=== PATIENT | female | born 1960 | race Caucasian/White ===

== ENCOUNTER 2024-12-19 20:27 | Emergency (ER) | payer OTHER ==
[~2024-12-19] VITALS: Ht 160 cm; Wt 113.0 kg
--- NOTE | 2024-12-19 20:44 | ED.PDOC ---
History of Present Illness HPI Comments 64 year old Female was BIBA for the c/c of Left Sided Weakness. Pt states she was at home with her family when she had a sudden on-set of Left arm/leg weakness. Pt also notes that she also experienced mumbling in her speech, and blurry vision for approx 5x mins. Pt is noted to have diminished sensation to he r left arm/leg compared to her Right arm/leg. Pt has a PMHx of HTN, A-Fib, and Arthritis. No other associated symptoms, modifiers, recent injuries or sick contacts present at this time. Chief Complaint: Left Sided Weakness Time Seen by MD: 20:36 Primary Care Provider: NONE Reviewed Notes: Nurses Notes, Medications, Allergies Allergies: Coded Allergies: NO KNOWN ALLERGIES (Unverified , 03/10/22) Information Source: Patient Mode of Arrival: EMS Severity: Moderate Timing: Minutes Duration: Since onset, Minutes Prehospital treatment: None Vital Signs Vital Signs Date Time Temp Pulse Resp B/P (MAP) Pulse Ox O2 Delivery O2 Flow Rate FiO2 12/20/24 02:45 98.0 58 20 103/56 (72) 93 98.0 12/19/24 21:37 Room Air* 0 21 Physical Exam General: Awake, alert and oriented. No acute distress. Skin: Skin in warm, dry and intact. Appropriate color for ethnicity. HEENT: The head is normocephalic and atraumatic. Conjunctivae are clear without exudates or hemorrhage. Sclera is non-icteric. EOM are intact. No signs of nystagmus. Eyelids are normal in appearance without swelling or lesions. Oral mucosa is pink and moist Neck: The neck is supple with normal range of motion. No JVD. Cardiac: Heart rate and rhythm are normal. No murmurs, gallops, or rubs are auscultated. Respiratory: No signs of respiratory distress. Lung sounds are clear in all lobes bilaterally without rales, rhonchi, or wheezes. Abdominal: Abdomen is soft, non-tender without distention, guarding or rigidity. Bowel sounds are present and normoactive in all four quadrants. Extremities: Upper and lower extremities are atraumatic in appearance without deformity or edema. Diminished sensation to Left extremities, when compared to r ight extremities. Neurological: The patient is awake, alert and oriented to person, place, and time with normal speech. Speech is clear. There is no facial asymmetry. Psychiatric: Appropriate mood and affect. Good judgement and insight. Review of Systems: REVIEW OF SYSTEMS: No fever, no chills, or fatigue HEENT: No sore throat, no earache, no congestion, no neck pain. blurry vision Cardiac: No chest pain. No palpitations. Lungs: No shortness of breath, no cough. GI: No nausea, no vomiting, no diarrhea, no constipation, no abdominal pain : No dysuria, frequency, or urgency. No hematuria. Musculoskeletal: No joint pain , no joint swelling, no extremity edema. Left sided extremity weakness Skin: No rash, no itching. 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 Was a procedure done?: No Differential Dx Considerations may include: But are not limited to TIA, stroke, migraine, electrolyte imbalance, other X-Ray, Labs, Meds, VS Vital Signs Date Time Temp Pulse Resp B/P (MAP) Pulse Ox O2 Delivery O2 Flow Rate FiO2 12/20/24 02:45 98.0 58 20 103/56 (72) 93 98.0 12/20/24 02:00 59 21 111/59 (76) 93 12/20/24 00:00 55 19 110/58 (75) 94 12/19/24 21:37 58 17 94 Room Air* 0 21 12/19/24 20:38 97.7 58 19 157/72 (100) 94 97.7 12/19/24 20:31 97.6 60 16 153/79 (103) 94 97.6 12/19/24 20:27 53 Lab Test 12/19/24 23:28 12/19/24 21:03 Range/Units Urine Color Light-yellow Yellow Urine Clarity Clear Clear Urine pH 5.5 5.0-9.0 Urine Specific [place] > 1.050 H 1.001-1.035 Urine Protein Negative Negative Urine Ketones Negative Negative Urine Blood Negative Negative /uL Urine Nitrite Negative Negative Urine Bilirubin Negative Negative Urine Urobilinogen Normal Negative mg/dL Urine Leukocyte Esterase Negative Negative /uL Urine RBC 1 0 - 4 /hpf Urine Microscopic WBC < 1 0-5 /HPF Urine Squamous Epithelial Cells Few <5 /hpf Urine Bacteria None seen None Seen /hpf Urine Mucus Few None Seen Urine Glucose Normal Normal mg/dL White Blood Count 8.4 4.4-10.8 10^3/uL Red Blood Count 5.14 4.0-5.20 10^6/uL Hemoglobin 15.1 12.2-16.2 g/dL Hematocrit 45.7 36.0-46.0 % Mean Corpuscular Volume 88.9 80.0-100.0 fL Mean Corpuscular Hemoglobin 29.4 28.0-32.0 pg Mean Corpuscular Hemoglobin Concent 33.1 32.0-36.0 g/dL Red Cell Distribution Width 14.5 H 11.8-14.3 % Platelet Count 229 140-450 10^3/uL Mean Platelet Volume 7.8 6.9-10.8 fL Neutrophils (%) (Auto) 61.9 37.0-80.0 % Lymphocytes (%) (Auto) 27.8 10.0-50.0 % Monocytes (%) (Auto) 7.7 0.0-12.0 % Eosinophils (%) (Auto) 1.9 0.0-7.0 % Basophils (%) (Auto) 0.7 0.0-2.0 % Neutrophils # (Auto) 5.2 1.6-8.6 10 ^3/uL Lymphocytes # (Auto) 2.3 0.4-5.4 10 ^3/uL Monocytes # (Auto) 0.7 0-1.3 10 ^3/uL Eosinophils # (Auto) 0.2 0-0.8 10 ^3/uL Basophils # (Auto) 0.1 0-0.2 10 ^3/uL Nucleated Red Blood Cells 0.1 % Prothrombin Time 27.7 H 9.3-11.8 sec Prothrombin Time INR 2.90 H 0.9-1.15 Activated Partial Thromboplast Time 39.9 H 24.5-34.5 SEC Sodium Level 142 136-145 mmol/L Potassium Level 4.4 3.5-5.1 mmol/L Chloride Level 105 98-107 mmol/L Carbon Dioxide Level 29 20-31 mmol/L Anion Gap 8 5-15 Blood Urea Nitrogen 18 9-23 mg/dL Creatinine 0.94 0.550-1.02 mg/dL Glomerular Filtration Rate Calc 68 >90 mL/min BUN/Creatinine Ratio 19.1 10.0-20.0 Serum Glucose 93 74-106 mg/dL Calcium Level 10.6 H 8.7-10.4 mg/dL Magnesium Level 1.8 1.6-2.6 mg/dL Total Bilirubin 0.8 0.2-1.0 mg/dL Aspartate Amino Transferase (AST) 20 13-40 U/L Alanine Aminotransferase (ALT) 21 7-40 U/L Alkaline Phosphatase 97 46-116 U/L Troponin I High Sensitivity 9 </=34 ng/L B-Type Natriuretic Peptide 26.09 0-100 pg/mL Total Protein 6.8 5.7-8.2 g/dL Albumin 4.0 3.2-4.8 g/dL Microbiology Date/Time Source Procedure Growth Status 12/19/24 22:00 Blood Blood Culture - Preliminary NO GROWTH AFTER 48 HOURS OF INCUBATION. Resulted 12/19/24 21:50 Blood Blood Culture - Preliminary NO GROWTH AFTER 48 HOURS OF INCUBATION. Resulted PATIENT: ROXANA GONSALEZ ACCT: [id number] UNIT: [id number] : 1960 LOC: ER ROOM / BED: / AGE / SEX: 64 / F ADM STATUS: REG ER SERVICE 33 ORDERING PHYSICIAN: UBALDO YUEN MD PROCEDURE(s): CXR1 - CHEST XRAY 1 VIEW REASON: Stroke-like symptoms ORDER NUMBER(s): [id number], ACCESSION NUMBER(s): [id number] CHEST RADIOGRAPH Indication: Stroke-like symptoms Technique: Single frontal view of the chest was obtained Comparison: None FINDINGS: Lines and Tubes: None Lungs: No focal consolidation. Pleura: No effusion. No pneumothorax. Cardiomediastinal contours: Unremarkable Bones: No acute osseous abnormality. IMPRESSION: 1. No acute cardiopulmonary disease. ENT: ROXANA GONSALEZ ACCT: [id number] UNIT: [id number] : 1960 LOC: ER ROOM / BED: / AGE / SEX: 64 / F ADM STATUS: REG ER SERVICE 33 ORDERING PHYSICIAN: UBALDO YUEN MD PROCEDURE(s): [place] - ANGIO HEAD/Neck REASON: Stroke-like symptoms ORDER NUMBER(s): [id number], ACCESSION NUMBER(s): [id number] EXAM: CT ANGIO HEAD/NECK CLINICAL HISTORY: Stroke-like symptoms TECHNIQUE: CT angiogram of the head and neck was performed without and with intravenous contrast. 3D MIP reconstructed images were created and archived on the PACS system. This exam was performed according to our departmental dose optimization program. Up-to-date CT equipment and radiation dose reduction techniques are utilized as appropriate. COMPARISON: None FINDINGS: CTA head: Cerebral volume loss with concordant prominence of the subarachnoid spaces and ventricles. There is a chronic small left cerebellar infarct. There is mild patchy low attenuation in the cerebral white matter consistent with nonspecific white matter disease. There is hypodensity in the left basal ganglia and chawla radiata (series 2, image 35). Small chronic right basal ganglia infarct. The dejesus white matter interfaces are maintained There is no midline shift or mass effect. There is no evidence of acute intracranial hemorrhage. The basal cisterns are patent. The calvarium is intact. The non dominant left vertebral artery terminates in the PICA, normal variant. origin of the bilateral strainer cleaner. There is mild calcified plaque in the bilateral cavernous and supraclinoid ICAs. The distal internal carotid, vertebral, and basilar arteries are patent without focal narrowing or occlusion. The anterior, middle, and posterior cerebral arteries are patent without focal narrowing. No aneurysm or arteriovenous malformation is identified. CTA neck: The aortic arch vessel origins are widely patent. Mild calcified plaque in the aortic arch. Mild calcified plaque in the bilateral carotid bifurcations. The common carotid and cervical portions of the internal carotid and vertebral arteries are patent without focal narrowing according to NASCET criteria. No aneurysm, AVM, or dissection is identified. The cervical soft tissues are unremarkable. There are calcified tonsillolith in the palatine tonsils The paranasal sinus and mastoid air cells are clear. The lung apices are clear. Partially imaged [id number] calcification in the visualized left anterior descending coronary artery. Partially visualized prior median sternotomy. Multilevel cervical spondylosis. Several maxillary and mandibular teeth have been removed. IMPRESSION: CTA head: 1. No acute intracranial hemorrhage. 2. Small Hypodensity in the left basal ganglia and left chawla radiata which could reflect age-indeterminate infarct. Consider obtaining MRI brain for further evaluation if clinically indicated. 3. Chronic appearing infarcts in the left cerebellum and right basal ganglia. 4. Mild cerebral volume loss and mild chronic microvascular ischemic change. 5. Widely patent intracranial arteries without large vessel occlusion, significant stenosis, AVM, or aneurysm. 6. origin of the bilateral strainer cleaner. CTA neck: 1. Patent arteries in the neck without large vessel occlusion, significant stenosis, aneurysm, AVM, or dissection. 2. Partially imaged [id number] calcification in the left anterior descending coronary artery. Time of 1ST Reevaluation: 21:06 Reevaluation 1ST: Unchanged Patient Education/Counseling: Need For Follow Up Family Education/Counseling: No Family Present Departure 1 Departure Time of Disposition: 21:48 Impression: Primary Impression: TIA (transient ischemic attack) Disposition: 02 SHORT TERM HOSPITAL Condition: Stable Comments 64-year-old female who presented with symptoms of speech difficulty left upper and lower extremity weakness/numbness which improved by the time she arrived to the emergency department. Patient was evaluated by tele Neurology, recommendation is admission for further workup, blood cultures. Discussed with Dr. Green from [place] Authorization #[id number] Critical Care Note Critical Care Time?: No Stability Stability form required: No Heart Score Heart Score: Heart Score Response (Comments) Value History N/A 0 EKG N/A 0 Age N/A 0 Risk Factors N/A 0 Troponin N/A 0 Total 0 I personally scribed for UBALDO YUEN MD ([email or web address]) on 12/19/24 at 20:44. Electronically submitted by Moncho Ramey ([email or web address]). I personally scribed for UBALDO YUEN MD ([email or web address]) on 12/19/24 at 21:47. Electronically submitted by Moncho Ramey ([email or web address]). I personally scribed for UBALDO YUEN MD ([email or web address]) on 12/20/24 at 02:32. Electronically submitted by Moncho Ramey ([email or web address]). UBALDO YUEN MD Dec 19, 2024 20:44
[2024-12-19] MEDS: IOHEXOL 350 MG/ML 100ML IJ ONE (20:50)
[2024-12-19 21:09] LABS: Basophils # (auto) 0.1 10 ^3/uL (0-0.2); Basophils % (auto) 0.7 % (0.0-2.0); Eosinophils # (auto) 0.2 10 ^3/uL (0-0.8); Eosinophils % (auto) 1.9 % (0.0-7.0); Hematocrit 45.7 % (36.0-46.0); Hemoglobin 15.1 g/dL (12.2-16.2); Lymphocytes # (auto) 2.3 10 ^3/uL (0.4-5.4); Lymphocytes % (auto) 27.8 % (10.0-50.0); Mean Corpuscular Hemoglobin 29.4 pg (28.0-32.0); Mean Corpuscular Hgb Conc. 33.1 g/dL (32.0-36.0); Mean Corpuscular Volume 88.9 fL (80.0-100.0); Monocytes # (auto) 0.7 10 ^3/uL (0-1.3); Monocytes % (auto) 7.7 % (0.0-12.0); Neutrophils # (auto) 5.2 10 ^3/uL (1.6-8.6); Neutrophils % (auto) 61.9 % (37.0-80.0); Nucleated Red Blood Cells % 0.1 %; Platelet Count (auto) 229 10^3/uL (140-450); Red Blood Cells 5.14 10^6/uL (4.0-5.20); Red Cell Distribution Width 14.5 % (11.8-14.3); White Blood Cell 8.4 10^3/uL (4.4-10.8)
[2024-12-19 21:24] LABS: INR 2.9 (0.9-1.15); Partial Thromboplastin Time 39.9 SEC (24.5-34.5); Prothrombin Time 27.7 sec (9.3-11.8)
[2024-12-19 21:27] LABS: Alanine Aminotransferase 21 U/L (7-40); Alkaline Phosphatase 97 U/L (46-116); Anion Gap 8 (5-15); Aspartate Aminotransferase 20 U/L (13-40); BUN/Creatinine Ratio 19.1 (10.0-20.0); Bilirubin, Total 0.8 mg/dL (0.2-1.0); Blood Urea Nitrogen 18 mg/dL (9-23); Carbon Dioxide 29 mmol/L (20-31); Chloride 105 mmol/L (98-107); Glucose 93 mg/dL (74-106); Magnesium 1.8 mg/dL (1.6-2.6); Potassium 4.4 mmol/L (3.5-5.1); Sodium 142 mmol/L (136-145); Total Protein 6.8 g/dL (5.7-8.2)
[2024-12-19 21:37] VITALS: PULSE 58; RESP 17; O2SAT 94
--- NOTE | 2024-12-19 21:41 | DVH ---
CHEST RADIOGRAPH Indication: Stroke-like symptoms Technique: Single frontal view of the chest was obtained Comparison: None FINDINGS: Lines and Tubes: None Lungs: No focal consolidation. Pleura: No effusion. No pneumothorax. Cardiomediastinal contours: Unremarkable Bones: No acute osseous abnormality. IMPRESSION: 1. No acute cardiopulmonary disease.
--- NOTE | 2024-12-19 21:52 | BSKYNEURO ---
[facility] Note # Demographics Consult Type: Acute Stroke Level 1 (0-4.5 hrs) Patient Location: Emergency Room First Name: ROXANA Last Name: WALLACE Date of : 1960 Age: 64 Gender: Female Facility: [facility] Time of Initial Page (): 12/19/2024 20:42 Time of Return Call (): 12/19/2024 20:43 # HPI History: [id number] Patient is coming to ER for left sided Weakness and numbness, along with speed changes, her symptoms have resolved. She was at home, laying in bed and had sudden onset of symptoms, her symptoms have resolved and lasted less than 10 min. History of A-fib, on-warfarin; H/O HTN, HLD, DM Duration: - resolved # Scores Time of exam and NIHSS (): 12/19/2024 21:25 Level of Consciousness 1a: [0] = Alert; keenly responsive LOC Questions 1b: [0] = Answers both questions correctly LOC Commands 1c: [0] = Performs both tasks correctly Best Gaze 2: [0] = Normal Visual 3: [0] = No visual loss Facial Palsy 4: [0] = Normal symmetrical movements Motor Arm Left 5a: [0] = No drift Motor Arm Right 5b: [0] = No drift Motor Leg Left 6a: [0] = No drift Motor Leg Right 6b: [0] = No drift Limb Ataxia 7: [0] = Absent Sensory 8: [0] = Normal Best Language 9: [0] = No aphasia Dysarthria 10: [0] = Normal Extinction and Inattention 11: [0] = No abnormality NIHSS Total: 0 ABCD2 Score for TIA: [1] = Age >/= 60 years: Yes [1] = BP >/= 140/90: Yes [1] = Clinical features of the TIA: speech disturbances without weakness [0] = Duration of symptoms: < 10 minutes [1] = History of diabetes: Yes ABCD2 Total: 4 # Assessment Impression: - Transient Ischemic Attack # Plan Thrombolytic/Intervention: NOT IV Thrombolysis or IA Intervention candidate Thrombolytic Exclusion (< 3 hour window): - NIHSS = 0 Intraarterial Exclusion: - clinical exam not consistent with presence of large vessel occlusion (LVO), can reconsider if LVO found on vascular imaging Modified [place] Scale (mRS) pre-stroke: [0] = No symptoms at all. Labs: - hemoglobin A1c - lipid panel - comprehensive metabolic panel - CBC Imaging: (urgency: STAT): - CT Angiogram Head and CT Angiogram Neck Imaging: (urgency: routine): - MRI Brain without contrast Diagnostic Test: - echo without bubble study Medication: - start statin with goal of LDL < 70 - anticoagulation with coumadin (Warfarin) DVT Prophylaxis: - SCD Other: - If patient has any neurological deterioration please call me back immediately - LDL < 70 - permissive hypertension - telemetry monitoring - will need event monitor or loop recorder as outpatient if atrial fibrillation not found as inpatient - neurology referral as outpatient - I have discussed my recommendations with the referring provider Disposition: admit # Logistics Attestation of consult completion: The patient is located at: [facility]. Facility staff participated in the visit. I performed this telemedicine visit from my offsite office utilizing interactive 2 way audio and visual telecommunication technology. Total time spent in telemedicine encounter: I spent 10 minutes reviewing clinical data and/or imaging, obtaining history, examining the patient, communicating with the onsite care team, and in preparation of this report. # Demographics First Name: ROXANA Last Name: WALLACE Facility: [facility] Yes MONIQUE COSME MD Dec 19, 2024 21:52
[2024-12-19 22:03] LABS: Calcium 10.6 mg/dL (8.7-10.4)
--- NOTE | 2024-12-19 23:48 | DVH ---
EXAM: CT ANGIO HEAD/NECK CLINICAL HISTORY: Stroke-like symptoms TECHNIQUE: CT angiogram of the head and neck was performed without and with intravenous contrast. 3D MIP reconstructed images were created and archived on the PACS system. This exam was performed accor ding to our departmental dose optimization program. Up-to-date CT equipment and radiation dose reduct ion techniques are utilized as appropriate. COMPARISON: None FINDINGS: CTA head: Cerebral volume loss with concordant prominence of the subarachnoid spaces and ventricles. There is a chronic small left cerebellar infarct. There is mild patchy low attenuation in the cerebral white ma tter consistent with nonspecific white matter disease. There is hypodensity in the left basal ganglia and chawla radiata (series 2, image 35). Small chronic right basal ganglia infarct. The dejesus white m atter interfaces are maintained There is no midline shift or mass effect. There is no evidence of acu te intracranial hemorrhage. The basal cisterns are patent. The calvarium is intact. The non dominant left vertebral artery terminates in the PICA, normal variant. origin of the bi lateral photocopying equipment repairer. There is mild calcified plaque in the bilateral cavernous and supraclinoid ICAs. The di stal internal carotid, vertebral, and basilar arteries are patent without focal narrowing or occlusio n. The anterior, middle, and posterior cerebral arteries are patent without focal narrowing. No aneur ysm or arteriovenous malformation is identified. CTA neck: The aortic arch vessel origins are widely patent. Mild calcified plaque in the aortic arch. Mild calc ified plaque in the bilateral carotid bifurcations. The common carotid and cervical portions of the i nternal carotid and vertebral arteries are patent without focal narrowing according to NASCET criteri a. No aneurysm, AVM, or dissection is identified. The cervical soft tissues are unremarkable. There are calcified tonsillolith in the palatine tonsils The paranasal sinus and mastoid air cells are clear. The lung apices are clear. Partially imaged mild -to-moderate calcification in the visualized left anterior descending coronary artery. Partially visu alized prior median sternotomy. Multilevel cervical spondylosis. Several maxillary and mandibular bonnie th have been removed. IMPRESSION: CTA head: 1. No acute intracranial hemorrhage. 2. Small Hypodensity in the left basal ganglia and left chawla radiata which could reflect age-indete rminate infarct. Consider obtaining MRI brain for further evaluation if clinically indicated. 3. Chronic appearing infarcts in the left cerebellum and right basal ganglia. 4. Mild cerebral volume loss and mild chronic microvascular ischemic change. 5. Widely patent intracranial arteries without large vessel occlusion, significant stenosis, AVM, or aneurysm. 6. origin of the bilateral photocopying equipment repairer. CTA neck: 1. Patent arteries in the neck without large vessel occlusion, significant stenosis, aneurysm, AVM, o r dissection. 2. Partially imaged [id number]-[id number] calcification in the left anterior descending coronary artery.
[2024-12-20 00:18] LABS: Urine Bacteria None Seen /hpf (None Seen)
[2024-12-20 00:37] LABS: Urine Blood Negative /uL (Negative); Urine Clarity Clear (Clear); Urine Color Light-Yellow (Yellow); Urine Mucus FEW (None Seen); Urine Protein, UAD Negative (Negative); Urine Squamous Epithelial Cell FEW /hpf (<5); Urine Urobilinogen Normal (Negative); Urine WBC < 1 /HPF (0-5); Urine pH 5.5 (5.0-9.0)
[2024-12-20 00:38] LABS: Urine Specific Gravity > 1.050 (1.001-1.035)
[2024-12-20 02:45] VITALS: BP 103/56; PULSE 58; RESP 20; TEMP 98; O2SAT 93
--- NOTE | 2024-12-20 05:28 | ECG ---
[facility] Test Date: 2024-12-19 Test Time: 20:23:49 Pat Name: ROXANA GONSALEZ Department: ED Room: Gender: F Classified Ad Taker: SUMAN : 1960 Requested By: UBALDO YUEN Order Number: [id number] Reading MD: Adrian Acharya Measurements Intervals [place] Rate: 53 P: 58 UT: 162 QRS: 37 QRSD: 107 T: 68 QT: 425 QTc: 399 Interpretive Statements Sinus rhythm Probable left atrial enlargement Electronically Signed On 12-21-2024 21:04:10 PDT by Adrian Acharya Please click the below link to view image of tracing.
== END 2024-12-20 03:10 | disposition short-term general hospital (02) ==
LOC: EDBD 20:27 → ER 20:27
DX: G45.9 Transient cerebral ischemic attack, unspecified (principal)
CPT/HCPCS: 36415; 70496; 70498; 71045; 80053; 81001; 83735; 83880; 84484; 85025; 85610; 85730; 87040; 93005; 99285; Q9967